=== PATIENT | female | born 1950 | race Caucasian/White ===

== ENCOUNTER 2021-04-21 18:17 | Emergency (ER) | payer MEDICARE ==
[~2021-04-21 18:17] MED LIST: Iopamidol 370 76% 125 ML VIAL FS ONE
[2021-04-21 18:45] LABS: #Basophils 0.2 thou/uL (0.0-0.2); #Eosinphils 0.1 thou/uL (0.0-0.7); #Lymphocytes 3.7 thou/uL (1.20-3.40); #Monocytes 0.8 thou/uL (0.11-0.59); #Neutrophils 6.8 thou/uL (1.40-6.50); %Basophils 1.8 % (0.0-1.0); %Lymphocytes 31.8 % (21.0-51.0); %Monocytes 6.5 % (0.0-10.0); %Neutrophils 58.9 % (42.0-75.0); Hemoglobin 12.8 g/dL (12.0-16.0); Mean Corpuscular HGB CONC 31.7 g/dL (32.0-36.0); Mean Platelet Volume 6.5 fL (7.4-10.4); Platelet Count 452 thou/uL (130-400); RBC Distribution Width 13.3 % (11.5-14.5); Red Blood Cell (RBC) Count 4.75 mill/uL (4.20-5.40); White Blood Cell (WBC) Count 11.6 thou/uL (4.8-10.8)
[2021-04-21 18:59] LABS: Acetaminophen Less than 6.0 mcg/mL (10.0-30.0); Alcohol Less than 10 mg/dL (Less than 10); Magnesium 1.9 mg/dL (1.6-2.6); Salicylate Less than 8.0 mg/dL (15.0-30.0)
[2021-04-21 19:02] LABS: ALT (SGPT) 17 U/L (8-55); AST (SGOT) 16 U/L (5-34); Albumin 3.9 g/dL (3.4-4.8); Alkaline Phosphatase 94 U/L (40-110); Anion Gap 18 mmol/L (10-20); BUN (Urea Nitrogen) 22 mg/dL (9.8-20.1); Bilirubin, Total 0.3 mg/dL (0.2-1.2); Calc. Creatinine Clearance 0 mL/min (70-130); Calcium 9.5 mg/dL (7.8-10.44); Carbon Dioxide 23 mmol/L (23-31); Chloride 101 mmol/L (98-107); Globulin 3.1 g/dL (2.4-3.5); Glucose 102 mg/dL (83-110); Potassium 3.5 mmol/L (3.5-5.1); Sodium 138 mmol/L (136-145)
[2021-04-21 19:56] LABS: SARS-CoV-2 NAA Rapid Test Not Detected (NotDetected)
== END 2021-04-21 19:43 | disposition short-term general hospital (02) ==
LOC: MADERS 18:17
DX: I63.9 Cerebral infarction, unspecified (principal); R47.01 Aphasia; K21.9 Gastro-esophageal reflux disease without esophagitis; E78.5 Hyperlipidemia, unspecified; E78.00 Pure hypercholesterolemia, unspecified; I10 Essential (primary) hypertension; Z20.822 Contact with and (suspected) exposure to COVID-19
CPT/HCPCS: 36416; 70450; 70496; 70498; 71045; 80053; 80307; 83735; 84484; 85025; 93005; 94760; 36415-59; Q9967; U0002

== ENCOUNTER 2021-06-12 10:43 | Outpatient (CLI) | payer MEDICARE | END 2021-06-12 10:44 | disposition home or self-care (01) | LOC: MADRAD 10:43 | PROVIDERS: ATTEND Specialist | DX: M47.26 Other spondylosis with radiculopathy, lumbar region (principal) | CPT/HCPCS: 72100 ==

== ENCOUNTER 2022-06-28 15:43 | Outpatient (CLI) | payer MEDICARE | END 2022-06-28 15:44 | disposition home or self-care (01) | LOC: MADRAD 15:43 | PROVIDERS: ATTEND Specialist | DX: M54.2 Cervicalgia (principal); M47.812 Spondylosis without myelopathy or radiculopathy, cervical region | CPT/HCPCS: 72052 ==

== ENCOUNTER 2024-03-12 15:46 | Emergency (ER) | payer MEDICARE ==
[~2024-03-12 15:46] MED LIST changes: +Iopamidol 370 76% 100 ML VIAL ONE; -Iopamidol 370 76% 125 ML VIAL FS ONE; +Sodium Chloride 0.9% 100 ML BAG ONE
[2024-03-12] MEDS ORDERED: Meclizine HCl 25 MG TAB ONE (16:48)
[2024-03-12] MEDS ORDERED: Ondansetron PF 4 MG/2 ML Vial ONE (16:48)
[2024-03-12 16:49] LABS: #Basophils 0.1 thou/uL (0.0-0.2); #Eosinophils 0.3 thou/uL (0.0-0.7); #Lymphocytes 2.8 thou/uL (1.20-3.40); #Monocytes 0.8 thou/uL (0.11-0.59); #Neutrophils 4.9 thou/uL (1.40-6.50); %Basophils 1.4 % (0.0-1.0); %Eosinophils 3.2 % (0.0-10.0); %Lymphocytes 31.3 % (21.0-51.0); %Monocytes 9.2 % (0.0-10.0); %Neutrophils 54.9 % (42.0-75.0); Hematocrit 36.5 % (36.0-47.0); Hemoglobin 11.8 g/dL (12.0-16.0); Mean Corpuscular HGB CONC 32.3 g/dL (32.0-36.0); Mean Corpuscular Hemoglobin 29.3 pg (27.0-31.0); Mean Corpuscular Volume 90.7 fl (78.0-98.0); Mean Platelet Volume 8.1 fL (7.4-10.4); Platelet Count 238 10x3/uL (130-400); RBC Distribution Width 13.9 % (11.5-14.5); Red Blood Cell (RBC) Count 4.02 mill/uL (4.20-5.40); White Blood Cell (WBC) Count 8.9 10x3/uL (4.8-10.8)
[2024-03-12 17:03] LABS: ALT (SGPT) 19 U/L (8-55); AST (SGOT) 22 U/L (5-34); Albumin 3.6 g/dL (3.4-4.8); Alkaline Phosphatase 64 U/L (40-110); Anion Gap 10 mmol/L (10-20); BUN (Urea Nitrogen) 25 mg/dL (9.8-20.1); Bilirubin, Total 0.4 mg/dL (0.2-1.2); Calc. Creatinine Clearance 0 mL/min (70-130); Carbon Dioxide 25 mmol/L (23-31); Chloride 109 mmol/L (98-107); Estimated GFR 62; Globulin 2.4 g/dL (2.4-3.5); Glucose 98 mg/dL (83-110); Magnesium 2.1 mg/dL (1.6-2.6); Potassium 4.3 mmol/L (3.5-5.1); Sodium 140 mmol/L (136-145)
[2024-03-12 17:04] LABS: Troponin I Less than 0.010 ng/mL (< 0.028)
[2024-03-12 17:07] LABS: INR-International Normal Ratio 0.9; PTT 32.3 sec (22.9-36.1); Prothrombin Time 12.3 sec (12.0-14.7)
[2024-03-12] MEDS ORDERED: Aspirin Chewable 81 MG TAB ONE (18:49)
== END 2024-03-12 23:04 | disposition short-term general hospital (02) ==
LOC: MADERS 15:46
DX: R42 Dizziness and giddiness (principal); R29.810 Facial weakness; R00.1 Bradycardia, unspecified; R29.702 NIHSS score 2; I10 Essential (primary) hypertension; Z86.73 Personal history of transient ischemic attack (TIA), and cerebral infarction without residual deficits; Z79.82 Long term (current) use of aspirin; Z79.899 Other long term (current) drug therapy
CPT/HCPCS: 70496; 70498; 71045; 80053; 83735; 84484; 85025; 85610; 85730; 93005; 94760; 96374; 99285; J2405; Q9967